=== PATIENT | female | born 1960 ===

== ENCOUNTER 2023-06-24 04:10 | Emergency (ER) | payer BC ==
[2023-06-24] MEDS ORDERED: predniSONE 20 MG Tab PO STA (05:07)
== END 2023-06-24 05:35 | disposition home or self-care (01) ==
LOC: JD.ED 04:10
DX: M06.9 Rheumatoid arthritis, unspecified (principal); E05.90 Thyrotoxicosis, unspecified without thyrotoxic crisis or storm; K21.9 Gastro-esophageal reflux disease without esophagitis; Z88.2 Allergy status to sulfonamides; Z88.5 Allergy status to narcotic agent; Z88.8 Allergy status to other drugs, medicaments and biological substances; Z86.16 Personal history of COVID-19
CPT/HCPCS: 93005; 99284; J7512; 93010